=== PATIENT | female | born 1980 | race Caucasian/White ===

== ENCOUNTER 2019-01-01 22:06 | Emergency (ER) | payer BC ==
--- NOTE | 2019-01-01 22:29 | EDM.PDOC ---
ED HPI GENERAL MEDICAL PROBLEM - General Chief Complaint: Upper Extremity Injury/Pain Stated Complaint: R THUMB INJURY Time Seen by Provider: 01/01/19 22:28 - History of Present Illness INITIAL COMMENTS - FREE TEXT/NARRATIVE: 38-year-old female presents emergency room with an injured right thumb This occurred shortly before arrival to the emergency department. Patient was playing softball guarding second base though for a ball and managed to jammed her thumb into the ground pretty hard she has a lot of discomfort around the metacarpal phalangeal joint. It is painful on movement no other injuries associated with this mishap. Treatments BRAKE LINING DRILLER: Reports: Other (see below) Other Treatments BRAKE LINING DRILLER: none Right Finger-Thumb Pain Score (Numeric/FACES): 5 - Related Data Allergies Allergy/AdvReac Type Severity Reaction Status Date / Time doxycycline Allergy Hives Verified 01/01/19 22:18 naproxen Allergy Hives Verified 01/01/19 22:18 sulfamethoxazole Allergy Hives Verified 01/01/19 22:18 [From Bactrim] trimethoprim [From Bactrim] Allergy Hives Verified 01/01/19 22:18 lodine Allergy Hives Uncoded 01/01/19 22:18 Home Meds: Home Meds Levothyroxine 225 mcg PO DAILY 01/01/19 [History] Zolpidem Tartrate [Ambien] 5 mg PO BEDTIME 01/01/19 [History] Past Medical History Genitourinary History: Reports: Other (See Below) Other Genitourinary History: uteral abblation Endocrine/Metabolic History: Reports: Hypothyroidism - Past Surgical History HEENT Surgical History: Reports: Tonsillectomy Musculoskeletal Surgical History: Reports: Arthroscopic Procedure Social & Family History - Tobacco Use Smoking Status *Q: Never Smoker - Caffeine Use Caffeine Use: Reports: Coffee, Soda, Tea - Recreational Drug Use Recreational Drug Use: No Review of Systems - Review of Systems Review Of Systems: See Below Constitutional: Reports: No Symptoms Respiratory: Reports: No Symptoms Cardiovascular: Reports: No Symptoms GI/Abdominal: Reports: No Symptoms ED EXAM, GENERAL - Physical Exam Exam: See Below Exam Limited By: No Limitations General Appearance: Alert, No Apparent Distress Head: Atraumatic, Normocephalic Neck: Normal Inspection, Supple, Non-Tender, Full Range of Motion Respiratory/Chest: No Respiratory Distress, Lungs Clear, Normal Breath Sounds Cardiovascular: Normal Peripheral Pulses, Regular Rate, Rhythm, No Edema Extremities: Other (Examination right thumb shows some mild swelling around the metacarpal phalangeal joint no obvious deformity. Testing the collateral ligaments here they feel fairly intact flexion and extension is very tender the distal interphalangeal joint test normally extension and flexion appear to be intact but this exam is limited. Base of the thumb seems to be fairly nontender she has no positive snuffbox tenderness) Course - Vital Signs Last Recorded V/S: Last Vital Signs Temp 36.6 C 01/01/19 22:24 Pulse 91 01/01/19 22:24 Resp 20 01/01/19 22:24 BP 149/105 H 01/01/19 22:24 Pulse Ox 98 01/01/19 22:24 - Orders/Labs/Meds Orders: Active Orders 24 hr Category Date Time Status Fingers Thumb Rt F5 [CR] Stat Exams 01/01/19 22:25 Taken Durable Medical Equipment for Discharge [DME for Oth 01/01/19 22:55 Ordered Discharge] [COMM] Routine - Re-Assessments/Exams Free Text/Narrative Re-Assessment/Exam: 01/01/19 23:23 X-ray examination is negative for acute fracture dislocation. The patient was placed in a preformed wrist thumb splint and this helps quite a bit with her discomfort. Departure - Departure Time of Disposition: 23:23 Disposition: Home, Self-Care 01 Condition: Good Clinical Impression: Injury of right thumb - Discharge Information Referrals: Audrey Wilson NP [Primary Care Provider] - Forms: ED Department Discharge Additional Instructions: Return to the emergency room with any questions problems worsening symptoms. Tylenol or Motrin as needed for pain. Wear the splint at all times however you can take your hand out of the splint several times a day and do gentle range of motion with your thumb however never push it to the point where it hurts follow-up in the clinic at the end of next week for recheck. - My Orders Last 24 Hours: My Active Orders 01/01/19 22:25 Fingers Thumb Rt F5 [CR] Stat 01/01/19 22:55 Durable Medical Equipment for Discharge [DME for Discharge] [COMM] Routine - Assessment/Plan Last 24 Hours: My Active Orders 01/01/19 22:25 Fingers Thumb Rt F5 [CR] Stat 01/01/19 22:55 Durable Medical Equipment for Discharge [DME for Discharge] [COMM] Routine
--- NOTE | 2019-01-02 08:04 | CR ---
Right thumb: Three views centered to the right thumb were obtained. Comparison: No prior stomach study. No discrete fracture or other bony abnormality is appreciated. Impression: 1. No abnormality is identified on right thumb exam. Diagnostic code #1
== END 2019-01-01 23:30 | disposition home or self-care (01) ==
LOC: JD.ED 22:06
DX: S69.91XA Unspecified injury of right wrist, hand and finger(s), initial encounter (principal); E03.9 Hypothyroidism, unspecified; Z88.1 Allergy status to other antibiotic agents; Z88.2 Allergy status to sulfonamides; Z79.899 Other long term (current) drug therapy; Y93.64 Activity, baseball; W23.1XXA Caught, crushed, jammed, or pinched between stationary objects, initial encounter
CPT/HCPCS: 73140-26-F5; 73140-F5; 99283-25

== ENCOUNTER 2024-01-30 22:27 | Emergency (ER) | payer BC ==
[2024-01-30] MEDS: Lidocaine 1% 10 ML MDV INJECT ONE (23:57)
[2024-01-30] MEDS: Lidocaine/Epineph/Tetracaine 3 ML Syringe TOP ONE (23:57)
== END 2024-01-31 01:03 | disposition home or self-care (01) ==
LOC: JD.ED 22:27
DX: S01.512A Laceration without foreign body of oral cavity, initial encounter (principal); E03.9 Hypothyroidism, unspecified; Z88.8 Allergy status to other drugs, medicaments and biological substances; Z88.5 Allergy status to narcotic agent; Z88.2 Allergy status to sulfonamides; Z91.041 Radiographic dye allergy status; Z79.890 Hormone replacement therapy; Z79.899 Other long term (current) drug therapy; W21.07XA Struck by softball, initial encounter; Y93.64 Activity, baseball
CPT/HCPCS: 12011; 99282; A9270-GY; J3490